=== PATIENT | male | born 1990 | race Two or more races ===

== ENCOUNTER 2025-05-14 11:49 | Emergency (ER) | payer BC ==
[~2025-05-14] VITALS: Ht 172.7 cm; Wt 77.1 kg
[2025-05-14] MEDS ORDERED: 0.9 % SODIUM CHLORIDE 1,000 ML IV SCH (12:15)
[2025-05-14 13:19] LABS: BASO % 0.3 % (0.1-1.2); EOS # 0.07 (0.04-0.54); EOS % 0.6 % (0.7-7.0); LYMPH # 1.13 (1.18-3.74); LYMPH % 9.3 % (19.3-53.1); MEAN PLATELET VOLUME 11.10 fl (9.4-12.4); MONO # 0.90 (0.24-0.82); MONO % 7.4 % (4.7-12.5); NEUT # 9.93 (1.56-6.13); NEUT % 81.6 % (34.0-71.1); RED CELL DISTRIBUTION WIDTH 11.9 % (11.6-14.4)
[2025-05-14 14:26] LABS: BUN CREA RATIO 18.0 (7.0-25.0); CREATININE SERUM 0.73 mg/dL (0.70-1.30); GFR 121.57; GLUCOSE FASTING 116.0 mg/dL (65-100); OSMOLALITY SERUM 284.0 MOSM/KG (275-295)
== END 2025-05-14 16:00 | disposition home or self-care (01) ==
LOC: ER 11:49
PROVIDERS: Emergency Medicine
DX: R42 Dizziness and giddiness (principal)